=== PATIENT | male | born 1940 | race Caucasian/White ===

== ENCOUNTER 2016-12-26 07:48 | Outpatient (CLI) | payer MEDICARE ==
--- NOTE | ~2016-12-26 | HEMODYNAMI ---
PATIENT:SONU INFANTE MEDICAL RECORD: [id number] : 42 LOCATION:[facility] ADMISSION DATE: 12/26/16 Generatedon:12/26/201610:07 Patient name: SONU INFANTE Patient #: [id number] : 1940 Date of study: 12/26/2016 Page: Of Hemodynamic Procedure Report Patient Data Patient Demographics Procedure consent was obtained First Name: SONU Gender: Male Last Name: NARESH : 1940 Middle Initial: EM Age: 76 year(s) Patient #: [id number] Race: SSN: [id number] Additional ID: [id number] Contact details Address: [address] [place] [address] State: [place] City: [facility] Zip code: [address] Past Medical History Allergies Allergen Reaction Date Comments Reported Other allergy 12/26/2016 LYRICA Admission Admission Data Admission Date: 12/26/2016 Admission Time: 7:48 Procedure Procedure Types Cath Procedure Diagnostic Procedure [facility] w/Coronaries PCI Procedure Coronary Stent Initial Miscellaneous Procedures Moderate Sedation up to 15 minutes Procedure Description Procedure Date Procedure Date: 12/26/2016 Procedure Start Time: 9:55 Procedure End Time: 10:07 Procedure Staff Name Function Marlon Lockhart MD Performing Physician Linda Hall RT Scrub Gurinder Mccollum RN Nurse Rosa M Hinojosa RT Monitor Indication CAD Procedure Data Cath Procedure Fluoroscopy Diagnostic fluoroscopy Total fluoroscopy Time: 2.2 time: 2.2 min min Diagnostic fluoroscopy Total fluoroscopy dose: 141 dose: 141 mGy mGy Contrast Material Contrast Material Type Amount (ml) Isovue 300 78 Entry Location Entry Primary Successful Side Size Upsize Upsize Entry Closure Murray ccessful Closure Location (Fr) 1 (Fr) 2 (Fr) Remarks Device Remarks Radial Right 6 Fr Mechanical artery Short Compression Estimated blood loss: 10 ml Diagnostic catheters Device Type Used For End Catheter Placement Diagnostic Terumo 5Fr LV Angiography [place] 110cm catheter Diagnostic Terumo 5Fr Left Coronary [place] 110cm catheter Angiography Diagnostic Terumo 5Fr Right Coronary [place] 110cm catheter Angiography Procedure Complications No complications Procedure Medications Medication Administration Route Dosage Oxygen NC 2 l/min Heparin Flush Bag added to field 2 bags (1000units/500ml NS) 0.9% NaCl I.V. 100 ml/hr Fentanyl I.V. 50 mcg Versed I.V. 1 mg Radial Cocktail added to field 1 syringe (Verapomil 2mg/Nitro 400mcg/Heparin 1500units) Radial Cocktail I.A. 1 syringe (Verapomil 2mg/Nitro 400mcg/Heparin 1500units) Fentanyl I.V. 50 mcg Versed I.V. 1 mg Heparin Bolus I.V. 4000 units Hemodynamics Rest Heart Rate: 52 (bpm) Snapshots Pre Cath Intra NCS Post Cath Vital Signs Time Heart Resp SPO2 NIBP (mmHg) Rhythm Pain Sedation Rate (ipm) (%) Status Level (bpm) 9:43:44 59 19 98 182/85(155) NSR 0 (11) 10(A) , No pain 9:48:06 55 19 94 155/72(141) NSR 0 (11) 10(A) , No pain 9:52:26 52 17 98 155/78(144) NSR 0 (11) 10(A) , No pain 9:57:48 54 18 99 127/63(111) NSR 0 (11) 9(A) , No pain 10:02:06 57 20 97 144/70(103) NSR 0 (11) 9(A) , No pain 10:06:16 61 12 98 151/66(111) NSR 0 (11) 9(A) , No pain Medications Time Medication Route Dose Verified Delivered Reason Notes Effectiveness by by 9:53:14 Oxygen NC 2 l/min Marlon Fairchild Per Richy Mccollum RN physician 9:53:25 Heparin Flush added 2 bags Marlon Fairchild used for Bag to Richy Mccollum procedure writer (1000units/500ml field NS) 9:54:37 0.9% NaCl I.V. 100 Marlon Fairchild Per ml/hr Richy Mccollum RN physician 9:54:52 Fentanyl I.V. 50 mcg Marlon Fairchild for sedation Richy Mccollum RN 9:55:04 Versed I.V. 1 mg Marlon Fairchild for sedation Richy Mccollum RN 9:55:14 Radial Cocktail added 1 Marlon Fairchild used for (Verapomil to syringe Richy Mccollum RN procedure 2mg/Nitro field 400mcg/Heparin 1500units) 9:57:12 Radial Cocktail I.A. 1 Marlon Mason for (Verapomil syringe Richy Lockhart MD vasodilation 2mg/Nitro 400mcg/Heparin 1500units) 9:57:18 Fentanyl I.V. 50 mcg Marlon Fairchild for sedation Richy Mccollum RN 9:57:23 Versed I.V. 1 mg Marlon Fairchild for sedation Richy Mccollum RN 10:01:21 Heparin Bolus I.V. 4000 Marlon Fairchild for sedation units Richy Mccollum RN Procedure Log Time Note 9:17:14 Linda Hall RT(R) sent for patient. Start room use. 9:26:29 Informed consent obtained and on chart 9:26:36 Diagnostic Cath Status : Elective 9:27:10 Indication : CAD 9:27:15 Time tracking: Regular hours 9:27:19 Plan of Care:Hemodynamics will remain stable., Cardiac rhythm will remain stable., Comfort level will be maintained., Respiratory function will remain adequate., Patient/ family verbilizes understanding of procedure., Procedure tolerated without complication., Recovers from procedure without complications.. 9:35:40 Patient received from Pre/Post Procedure Room to CCL 3 Alert and oriented. Tansferred to table in Supine position. 9:35:41 Warm blankets applied, and esther hugger turned on for patient comfort. 9:35:42 Correct patient and procedure confirmed by team. 9:35:44 ECG and BP/O2 sat monitors applied to patient. 9:35:44 Full Disclosure recording started 9:42:25 Vital chart was started 9:44:33 Baseline sample Acquired. 9:44:35 Rhythm: sinus bradycardia 9:44:46 H&P Date Dictated: 12/19/2016 Within 30 days and on chart., H&P Addendum completed by physician on day of procedure. (MUST COMPLETE FOR ALL OUTPATIENTS). 9:44:47 Pre-procedure instructions explained to patient. 9:44:47 Pre-op teaching completed and patient verbalized understanding. 9:44:49 Family in patients room. 9:44:51 Patient NPO since Midnight. 9:45:05 Patient allergic to Other allergyLYRICA 9:45:08 Is the patient allergic to Iodine/contrast media? No. 9:45:11 Is patient on blood thinner?Yes 9:45:13 ACC The patient was administered the following blood thiners within the last 24 hours: ACCAspirin, ACCPlavix 9:45:15 Patient diabetic? Yes. 9:45:16 If diabetic: On Metformin? Yes 9:45:18 If on Metformin: Last Dose? 12/24/2016 9:45:21 Previous problem with sedation/anesthesia? No ? 9:45:22 Snore? Yes 9:45:22 Sleep apnea? Yes 9:45:23 Deviated septum? No 9:45:24 Opens mouth fully? Yes 9:45:25 Sticks out tongue? Yes 9:45:27 Airway obstruction? No ? 9:45:28 Dentures? No ? 9:45:30 Pre procedure: right dorsailis pedis pulse 2+ Normal; easily identifiable; not easily obliterated 9:45:32 Modified Aden's test Ulnar < 7 seconds 9:45:34 Patient pain scale 0/10 ?. 9:45:36 IV patent on arrival in left hand with 0.9% NaCl at [facility]. 9:45:40 Lab results completed and on chart. 9:45:42 Right Radial & Right Groin area was prepped with chlora-prep and draped in sterile fashion 9:45:43 Alarms reviewed by R. N. 9:45:43 Sharps counted by scrub and verified by R.N. 9:52:50 Final Timeout: patient, procedure, and site verified with staff and physician. All members of the team are in agreement. 9:52:52 Right Radial site verified by team. 9:52:55 Physical assessment completed. ASA score P 2 - A patient with mild systemic disease as per Marlon Lockhart MD. 9:52:58 Sedation plan: IV Moderate Sedation Versed, Fentanyl 9:53:08 Zero performed for pressure channel P1 9:53:14 Oxygen 2 l/min NC was administered by Gurinder Mccollum RN; Per physician; 9:53:22 Use device set Radial Dx 9:53:23 Acist Syringe opened to sterile field. 9:53:23 Medline Cath Pack opened to sterile field. 9:53:23 Bag Decanter opened to sterile field. 9:53:23 Terumo 6Fr Slender Glidesheath opened to sterile field. 9:53:24 St Earnest 260cm J .035 wire opened to sterile field. 9:53:24 Acist Hand Control opened to sterile field. 9:53:24 Acist Manifold opened to sterile field. 9:53:25 Heparin Flush Bag (1000units/500ml NS) 2 bags added to field was administered by Gurinder Mccollum RN; used for procedure; 9:53:25 Tegaderm 4 x 4 opened to sterile field. 9:53:25 MBrace Wrist Support opened to sterile field. 9:54:02 Baseline sample Acquired. 9:54:37 0.9% NaCl 100 ml/hr I.V. was administered by Gurinder Mccollum RN; Per physician; 9:54:52 Fentanyl 50 mcg I.V. was administered by Gurinder Mccollum RN; for sedation; 9:55:04 Versed 1 mg I.V. was administered by Gurinder Mccollum RN; for sedation; 9:55:14 Radial Cocktail (Verapomil 2mg/Nitro 400mcg/Heparin 1500units) 1 syringe added to field was administered by Gurinder Mccollum RN; used for procedure; 9:55:38 Procedure started. 9:55:42 Local anesthetic to right radial artery with Lidocaine 2% by Marlon Lockhart MD.INITIAL ACCESS ONLY 9:56:37 A 6 Fr Short sheath was inserted into the Right Radial artery 9:57:09 A Diagnostic Terumo 5Fr [place] 110cm catheter was advanced over the wire and used for LV Angiography. 9:57:12 Radial Cocktail (Verapomil 2mg/Nitro 400mcg/Heparin 1500units) 1 syringe I.A. was administered by Marlon Lockhart MD; for vasodilation; 9:57:18 Fentanyl 50 mcg I.V. was administered by Gurinder Mccollum RN; for sedation; 9:57:23 Versed 1 mg I.V. was administered by Gurinder Mccollum RN; for sedation; 9:57:52 LV gram done using KWONG 9:57:56 EF : 60 % 9:58:00 Injector settings: Ml/sec: 5, Volume: 15, 9:58:01 Catheter removed. 9:59:25 A Diagnostic Terumo 5Fr [place] 110cm catheter was advanced over the wire and used for Left Coronary Angiography. 9:59:38 A Diagnostic Terumo 5Fr [place] 110cm catheter was advanced over the wire and used for Right Coronary Angiography. 10:00:04 Starline BasixCompak Inflation Kit opened to sterile field. 10:00:05 Cardona Whisper J 300cm 0.014 guide wire opened to sterile field. 10:01:08 6 Fr AR 2.0 guide catheter was inserted over the wire 10:01:15 Medtronic Launcher 6Fr AR 2.0 guide catheter opened to sterile field. 10:01:21 Heparin Bolus 4000 units I.V. was administered by Gurinder Mccollum RN; for sedation; 10:01:47 ParStreamiaper wire advanced. 10:02:35 Inflation Number: 1 A Solutionarytronic Integrity 2.5 X 12 stent was prepped and advanced across the Mid RCA. The stent was deployed at 9 MARTÍN for 0:07 (min:sec). 10:02:51 Stent catheter was removed intact over wire. 10:02:51 Wire removed. 10:02:52 Guide catheter removed. 10:02:59 Sheath removed intact; hemostasis achieved with Mechanical Compression to the Right Radial artery. 10:03:02 Procedure ended.(Physican Out) 10:03:14 Terumo TR Band Standard opened to sterile field. 10:03:19 Fluoroscopy time 02.20 minutes. 10:03:25 Fluoroscopy dose: 141 mGy 10:03:25 Flurop Dose total: 141 10:03:32 Contrast amount:Isovue 300 78ml. 10:03:33 Sharps counted by scrub and verified by R.N. 10:03:39 TR band inflated with 12cc of air. 10:03:40 Insertion/operative site no bleeding no hematoma. 10:03:51 Post right radial artery:stable, clean and dry 10:03:53 Post Procedure Pulses reassessed and unchanged 10:03:57 Post-procedure physical assessment completed. ASA score P 2 - A patient with mild systemic disease as per Marlon Lockhart MD. 10:03:59 Post procedure rhythm: unchanged. 10:04:02 Estimated blood loss: 10 ml 10:04:03 Post procedure instruction explained to patient.Patient verbalizes understanding. 10:04:03 Patient needs reinforcement of post procedure teaching. 10:04:15 Procedure type changed to Cath procedure, Diagnostic procedure, LHC, LHC w/Coronaries, PCI procedure, Coronary Stent Initial, Miscellaneous Procedures, Moderate Sedation up to 15 minutes 10:04:20 Procedure Complication : No complications 10:04:23 See physician's report for complete and final results. 10:06:46 Procedure and supply charges have been captured, reviewed, submitted and are correct. 10:06:57 Vital chart was stopped 10:06:59 Report given to Pre/Post Procedure Room. 10:07:03 Patient transfered to Pre/Post Procedure Room with Stretcher. 10:07:05 Procedure ended. 10:07:05 Full Disclosure recording stopped 10:07:14 End room use (Document Last) Intervention Summary Intervention Notes Time ActionType Lesion and Equipment Action# Pressure Duration Attributes Used 10:02:35 Place stent Mid RCA Medtronic 1 9 00:07 Integrity 2.5 X 12 stent Device Usage Item Name Manufacture Quantity Catalog Hospital Part Current Minimal Lot# / Number Charge Number Stock Stock Serial# Code Acist Acist 1 32903 [id number] 453813 853906 20 Syringe Medical Systems Inc Medline Cardinal 1 [id number] 195581 68662 839547 5 Cath Pack Health Bag Microtek 1 2002S 234553 82306 734555 5 Focal Energy Medical Inc. Terumo 6Fr Terumo 1 [id number] 149085 522057 071394 [address] St Earnest 1 714369 032126 947226 531682 30 260cm J .035 wire Acist Hand Acist 1 27367 075214 294406 067644 5 Control Medical Systems Inc Acist Acist 1 47361 915794 046678 150541 5 Manifold Medical Systems Inc Tegaderm 4 3M 1 1626W 196869 492940 388320 5 x 4 MBrace Advanced 1 140-0250-00 807548 25111 711015 5 Wrist Vascular Support Dynamics Diagnostic Terumo 1 24-9142 684318 703667 521398 5 Terumo 5Fr [place] 110cm catheter Merit Merit 1 [id number] 029861 837727 708302 15 BasixDeminosk Medical Inflation Kit Cardona Cardona 1 [id number] 593287 674289 019164 5 Whisper J Vascular 300cm 0.014 guide wire Medtronic Medtronic 1 [id number] 043378 25464 400058 1 Launcher 6Fr AR 2.0 guide catheter Medtronic Medtronic 1 [id number] 955820 496196 3 [id number] Integrity 2.5 X 12 stent Terumo TR Terumo 1 [id number] 235670 487648 948648 40 Band Standard Signature Audit [place] Stage Time Signature Unsigned Intra-Procedure 12/26/2016 Rosa M 10:07:24 AM Counts RT(R) Signatures Monitor : Rosa M Signature : Counts RT Date : Time : [place] [address] [place] [address]
[2016-12-26] MEDS ORDERED: CARDURA2 MG PO (08:10)
[2016-12-26] MEDS ORDERED: HYDROCHLOROTH12.5 M1 PO (08:11)
[2016-12-26] MEDS ORDERED: GLUCOPHAGE1000 MG PO (08:11)
[2016-12-26] MEDS ORDERED: LIPITOR20 MG PO (08:12)
[2016-12-26] MEDS ORDERED: NEURONTIN800 MG PO (08:12)
[2016-12-26] MEDS ORDERED: BAYER CHEWABLE81 MG PO (08:13)
[2016-12-26] MEDS ORDERED: PLAVIX75 MG PO (08:13)
[2016-12-26] MEDS ORDERED: AMBIEN10 MG PO (08:13)
[2016-12-26] MEDS ORDERED: ROBAXIN-750750 MG PO (08:14)
[2016-12-26] MEDS ORDERED: HYDROCODONE-APA1 TAB PO (08:15)
[2016-12-26 08:23] VITALS: BP 173/74; BMI 27.0
[2016-12-26 08:32] LABS: BASOPHILS 0.4 % (0-2); EOSINOPHILS 3.7 % (0-7); HEMATOCRIT 37.3 % (42.0-54.0); HEMOGLOBIN 12.6 g/dL (13.5-17.5); IMMATURE GRANULOCYTES 0.4 % (0-5); LYMPHOCYTES 21.9 % (15-50); MCH 32.6 pg (26.0-34.0); MCHC 33.8 g/dL (31.0-37.0); MCV 96.4 fL (80.0-100.0); MEAN PLATELET VOLUME 11.4 fL (7.4-10.4); MONOCYTES 8.2 % (2-11); NEUTROPHILS 65.4 % (40-80); RBC 3.87 10x6/uL (4.20-6.10); RDW 13.3 % (11.5-14.5); WBC 6.8 10x3/uL (4.8-10.8)
[2016-12-26 08:35] LABS: PLATELET COUNT 214 10x3/uL (130-400)
[2016-12-26 08:46] LABS: CALCIUM 9.5 mg/dL (8.5-10.1); CARBON DIOXIDE 27.7 mmol/L (21.0-32.0); CREATININE - SERUM 1.1 mg/dL (0.6-1.3); POTASSIUM - SERUM 3.7 mmol/L (3.5-5.1)
--- NOTE | 2016-12-26 10:41 | NUR ---
HOB ELEVATED. ALL VITALS WNL. SB, RATE 47 W NO C/O CHEST PAIN. PULSES PALP X4. R WRIST TR BAND C/D/I WITH NO HEMATOMA OR BLEEDING.
--- NOTE | 2016-12-26 12:20 | NUR ---
1145 L GROIN REMAINS C/D/I WITH NO HEMATOMA OR BLEEDING. VITALS ALL WNL. REMAINS SINUS MARLENE RATE 46 WNO C/O CHEST PAIN. AT SIDE.
--- NOTE | 2016-12-26 13:08 | NUR ---
VOIDED 450CC VIA URINA. SITTING UP EATING TURKEY SANDWICH.
--- NOTE | 2016-12-26 13:17 | NUR ---
2CC AIR REMOVED FROM R WRIST TR BAND. WILL MONITOR FOR BLEEDING
--- NOTE | 2016-12-26 13:42 | NUR ---
PIV REMOVED FROM LEFT FOREARM WITH BANDAID APPLIED. UP TO BEDSIDE TO DRESS WITH ASSIST FROM .
--- NOTE | 2016-12-26 13:59 | NUR ---
TR BAND WEANED COMPLETELY. TEGADERM AND COTTON BALL APPLIED. D/C INSTRUCTIONS DISCUSSED WITH PATIENT AND AT BEDSIDE. WHEELED OUT VIA WHEELCHAIR BY CATH TEAM.
--- NOTE | 2016-12-28 13:09 | OP ---
PATIENT NAME: SONU INFANTE MEDICAL RECORD: [id number] :42 LOCATION:[facility] ADMISSION DATE: SURGEON: KERI CHENG MD DATE OF OPERATION: 12/26/2016 PROCEDURES: 1. PTCA stent RCA. 2. Left heart catheterization. 3. Selective coronary angiography. 4. Left ventriculogram. INDICATION: Angina and coronary artery disease. DESCRIPTION OF PROCEDURE: Informed consent obtained and after detailed explanation of risks, benefits as well as alternative therapies, the patient elected to proceed with angiogram and angioplasty. The right radial area is prepped and draped in normal sterile fashion. The right radial artery was cannulated via modified Seldinger technique with placement of 6-Vietnamese sheath. All catheters exchanged through this sheath. FINDINGS: Left ventriculogram was performed in standard 30-degree KWONG view, reveals good cardiac wall motion, ejection fraction is 60%. SELECTIVE CORONARY ANGIOGRAPHY: 1. Left main showed no significant angiographic disease. 2. Left anterior descending has moderate irregularities, but no flow-limiting stenosis. 3. The left circumflex has moderate irregularities, but no flow-limiting stenosis. 4. Right coronary has 75% stenosis in mid vessel. PTCA STENT OF THE RIGHT CORONARY: The stent used was a 2.5 x 12 mm Integrity. Result was 0% residual stenosis. OVERALL IMPRESSION: Successful percutaneous transluminal coronary angioplasty stent of the right coronary artery going from 75% initial stenosis to 0% residual. TRANSINT:[id number] Voice Confirmation ID: [id number] DOCUMENT ID: [id number] KERI CHENG MD at 1309 CC: [id number] DICTATION DATE: 12/26/16 1006 FEEDER LOADER: 12/26/16 1149 DEP CLI 12/26/16 [place] [id number]
== END 2016-12-26 14:00 | disposition home or self-care (01) ==
LOC: D.CATH 07:48
PROVIDERS: Internal Medicine Interventional Cardiology
DX: I25.119 Atherosclerotic heart disease of native coronary artery with unspecified angina pectoris (principal); Z01.812 Encounter for preprocedural laboratory examination

== ENCOUNTER → 2017-04-26 14:08 | Outpatient (CLI) | payer MEDICARE ==
[~2017-04-26 14:08] MED LIST: AMBIEN10 MG PO; BAYER CHEWABLE81 MG PO; CARDURA2 MG PO; GLUCOPHAGE1000 MG PO; HYDROCHLOROTH12.5 M1 PO; HYDROCODONE-APA1 TAB PO; LIPITOR20 MG PO; NEURONTIN800 MG PO; PLAVIX75 MG PO; ROBAXIN-750750 MG PO
== END | disposition home or self-care (01) ==
LOC: D.US 14:08
DX: R09.89 Other specified symptoms and signs involving the circulatory and respiratory systems (principal)

== ENCOUNTER 2017-05-22 07:26 | Day surgery (SDC) | payer MEDICARE ==
[2017-05-21 09:16] LABS: HEMATOCRIT 36.9 % (42.0-54.0); HEMOGLOBIN 12.1 g/dL (13.5-17.5); MCH 31.5 pg (26.0-34.0); MCHC 32.8 g/dL (31.0-37.0); MCV 96.1 fL (80.0-100.0); MEAN PLATELET VOLUME 11.4 fL (7.4-10.4); RBC 3.84 10x6/uL (4.20-6.10); RDW 13.4 % (11.5-14.5); WBC 7.5 10x3/uL (4.8-10.8)
--- NOTE | ~2017-05-22 | OP ---
PATIENT NAME: SONU INFANTE MEDICAL RECORD: [id number] :42 [facility] DATE: SURGEON: MARIANA CANALES MD DATE OF OPERATION: 05/22/2017 SURGEON: Mariana Canales MD ANESTHESIA: TIVA by Gael Moore CRNA. PREOPERATIVE DIAGNOSES: Elevated PSA 4.0, abnormal digital rectal examination with nodule on the right mid prostate. PROCEDURE: Transrectal ultrasound and prostate biopsy. FINDINGS: A 13 gram prostate. Intraprostatic stones are seen with no hypoechoic areas. SPECIMEN: Prostate biopsy cores. ESTIMATED BLOOD LOSS: None. CLINICAL HISTORY: This is a 76-year-old male, who on digital rectal examination was found to have a nodule on his right prostate. His PSA on 04/18/2017 was 4.0. Previously, he was in the 2 range. He has a history of BPH for which he has been on doxazosin for many years. He has some obstructive voiding symptoms, also including nocturia times 4. There is no family history of prostate cancer. He had a brother who was in [place] and who has had exposure to Agent [place]. The brother of lung cancer. The patient would like to know if he has prostate cancer or not and he comes today for a prostate biopsy. He is allergic to LYRICA AND PLAVIX. He was given ampicillin and sulbactam 3 grams IV labor utilization superintendent to the OR. DESCRIPTION OF PROCEDURE: The patient was given IV sedation. He was then placed into dorsal lithotomy position and prepped and draped. The transrectal ultrasound probe was introduced and prostate size measurements were obtained. Prostate size was small and estimated at 13 grams. Intraprostatic stones are seen. We did not see any hypoechoic areas; however. Sextant biopsies were obtained with at least 3 cores from each sextant. I obtained an extra number of cores from the right mid lobe where the nodule was present. Once all the specimens were obtained, the procedure was terminated. The patient was awakened and brought back to the preoperative holding area. I will see him in followup next week to review the pathology with him. TRANSINT:[id number] Voice Confirmation ID: [id number] DOCUMENT ID: [id number] MARIANA CANALES MD at 0926 CC: [id number] DICTATION DATE: 05/22/17 1128 APARTMENT ASSISTANT MANAGER: 05/22/17 1237 DEP SDC 05/22/17 [place] [id number] [place] [address]
[~2017-05-22 07:26] MED LIST changes: +BENADRYL25 MG PO; +CARDURA4 MG PO; +FISH OIL 1,0001 CA1 PO; +GLUCOPHAGE500 MG PO; +INHA NASAL; +NASACORT10.8 ML NASAL; +NEURONTIN600 MG PO; -NEURONTIN800 MG PO; +REQUIP0.25 MG PO; +[UNRECOGNIZED DRUG - OTHER] NASAL
[2017-05-22 08:20] VITALS: BP 153/54; BMI 28.0
== END 2017-05-22 12:02 | disposition home or self-care (01) ==
LOC: D.OPS 07:26
PROVIDERS: Anesthesiology
DX: R97.20 Elevated prostate specific antigen [PSA] (principal); N40.2 Nodular prostate without lower urinary tract symptoms; I25.10 Atherosclerotic heart disease of native coronary artery without angina pectoris; I10 Essential (primary) hypertension; E11.9 Type 2 diabetes mellitus without complications; K21.9 Gastro-esophageal reflux disease without esophagitis; G47.30 Sleep apnea, unspecified; Z01.812 Encounter for preprocedural laboratory examination

== ENCOUNTER → 2017-11-05 10:03 | Outpatient (CLI) | payer MEDICARE ==
[~2017-11-05] VITALS: Ht 177.8 cm; Wt 85.7 kg
[2017-11-05 12:18] VITALS: Ht 177.8 cm; Wt 85.7 kg
== END | disposition home or self-care (01) ==
LOC: D.FANS 10:03
DX: E11.9 Type 2 diabetes mellitus without complications (principal)